=== PATIENT | female | born 1980 ===

== ENCOUNTER 2018-02-18 12:42 | Day surgery (SDC) | payer BC ==
[2018-02-12 09:29] VITALS: BMI 24.2
[2018-02-18 13:35] VITALS: RESP 18
[2018-02-18 14:23] LABS: HEMOGLOBIN 12.9 g/dL (12.0-16.0); MEAN CELL VOLUME 84.9 fl (81.0-99.0); MEAN CORPUSCULAR HEMOGLOBIN 28.6 pg (27.0-31.0); MEAN CORPUSCULAR HGB CONC 33.7 g/dL (33.0-37.0); RBC 4.51 Mil/uL (3.80-5.20); RED CELL DISTRIBUTION WIDTH 14.3 % (11.5-14.5); WHITE BLOOD COUNT 6.9 K/uL (4.8-10.8)
[2018-02-18] MEDS ORDERED: Silver Nitrate Topical - Stick ONE (14:49)
[2018-02-18] MEDS ORDERED: Midazolam 2 MG/2 ML VIAL ONE (15:05)
[2018-02-18] MEDS ORDERED: Propofol 10 mg/ml Inj (20 ML) ONE (15:05)
[2018-02-18] MEDS ORDERED: Dexamethasone 4 mg/1 ml ONE (15:44)
[2018-02-18] MEDS ORDERED: HYDROmorphone 0.5 mg/0.5 ml ISec IVP PRN (16:26)
[2018-02-18] MEDS ORDERED: Lactated Ringer's 1,000 ML IV SCH (16:30)
[2018-02-18 17:25] VITALS: O2SAT 99
[2018-02-18 18:10] VITALS: BP 116/75; PULSE 74; TEMP 97.7
--- NOTE | 2018-02-19 11:04 | CP.SDSHP ---
Same Day Surgery H & P - History Proposed Procedure: Hysteroscopy Pre-Op Diagnosis: Endometrial polyps - Allergies Allergies: Allergies No Known Allergies Allergy (Verified 02/12/18 09:29) - Impression Impression: Ready for discharge after procedure Pt. Evaluated Today:Candidate for Anesthesia & Procedure: Yes Short Stay Discharge - Short Stay Discharge Admitting Diagnosis/Reason for Visit: N84.0 Disposition: HOME/ ROUTINE Referrals: Kimberly Mendoza MD [Primary Care Provider] -
--- NOTE | 2018-02-20 06:54 | OP ---
PROCEDURE DATE: 02/18/2018 PREOPERATIVE DIAGNOSES: The patient is a 37-year-old female with endometriosis and endometrial polyps. POSTOPERATIVE DIAGNOSES: Endometrial polyps and uterine septum. SURGEON: Kimberly Mendoza MD. TUBE DRAWER: None. TYPE OF ANESTHESIA: General with LMA. ANESTHESIOLOGIST: Dr. Angus Garcia. PROCEDURES: 1. Hysteroscopic polypectomy. 2. Uterine septum division. IV FLUID: 900 mL. HYSTEROSCOPIC FLUID: Normal saline, 3800 mL in, 3500 mL out, 500 mL deficit. ESTIMATED BLOOD LOSS: Less than 10 mL. DRAINS USED: None. BLOOD: None. COMPLICATIONS: None. SPECIMEN: Endometrial polyps. FINDINGS: 1. Uterine sounded to 8 cm. 2. Anteverted uterus. 3. Normal tubal ostia. 4. Small midline uterine septum. 5. Polypoid endometrium throughout uterine cavity. DESCRIPTION OF PROCEDURE: After proper consent was obtained and all questions were answered, the patient was transferred to the operating room #[address] [facility] where adequate general anesthesia with LMA was administered. The patient was placed in a modified dorsal lithotomy position using the Arash stirrups with correct position to prevent nerve injury. An exam under anesthesia was performed with findings as noted above. The patient had an anteverted multilobular uterus. The patient has known fibroids. Sterile prep with Betadine and then drape in the usual fashion was performed and attention was directed to the perineum. A weighted speculum was placed into the posterior fornix of the vagina and a right angle retractor into the anterior fornix of the vagina. The cervix was visualized and anterior lip of the cervix was grasped with a single tooth tenaculum. Cervix was serially dilated using the Montrell dilators to accommodate the operative hysteroscope. The hysteroscope was prepared with normal saline and advanced into the uterine cavity under direct visualization. The uterus was surveyed with findings as noted above. Attention was directed to the uterine surface. Multiple small polypoid fragments were noted throughout the uterine surface. The hysteroscopic graspers and scissors were placed through the operating port of the hysteroscope and used to directly under visualization resect the endometrial polyps throughout the uterine cavity. These were sent to pathology. The uterine fundus was closely inspected and noted to be slightly arched into the uterine cavity with a very whitish fibrous appearance. The hysteroscopic scissors were advanced through the operating port and used to lyse the small uterine subseptum at the uterine fundus. The septum resection was carried through the tissue until pink slightly vascular tissue was noted underneath. The uterine cavity was surveyed at the conclusion of the procedure. After the septum division, the uterine captivated normal shape. There were no further abnormalities. No fibroids were noted in the uterine cavity or through the uterine wall. Bilateral tubal ostia appeared normal. All instruments were removed from the uterine cavity and the single tooth tenaculum was removed from the uterine cervix. Silver nitrate and sponge sticks were used to achieve hemostasis at the uterine cervix. All instruments were removed from the vaginal vault. The patient was placed into the supine position and transferred to the recovery room in good condition. She will follow up with Dr. Kimberly Mendoza in 2 weeks' time. Kimberly Mendoza MD
--- NOTE | 2018-02-20 07:05 | OP ---
PROCEDURE DATE: 02/18/2018 PREOPERATIVE DIAGNOSIS: The patient is a 37-year-old female with endometrial polyps. POSTOPERATIVE DIAGNOSES: Endometrial polyps and uterine septum. PROCEDURE: Hysteroscopic polypectomy and uterine septum division. SURGEON: Kimberly Mendoza MD. APPLICATIONS PROGRAMMER: None. TYPE OF ANESTHESIA: General anesthesia with LMA. ANESTHESIA ADMINISTERED BY: Dr. Coppola. IV FLUID: 900 mL URINE OUTPUT: None. HYSTEROSCOPIC FLUID: Normal saline 3000 mL in, 3500 mL out, 500 mL deficit. BLOOD GIVEN: None. SPECIMEN: Endometrial polyp. OPERATIVE FINDINGS: 1. Uterine sounded to 8 cm. 2. Anteverted uterus. 3. Normal tubal ostia bilaterally. 4. Small uterine septum, midline. 5. Diffusely polypoid endometrium. DESCRIPTION OF PROCEDURE: After proper consent was obtained and all questions were answered, the patient was transferred to the operating room #4 at [facility]. Adequate general anesthesia with LMA was administered and the patient was placed in a modified dorsal lithotomy position using the Arash stirrups. Sterile prep and drape was performed in the usual fashion after an exam under anesthesia was performed with findings as noted above. Attention was directed to the perineum. A weighted speculum was placed into posterior fornix of the vagina and a right angle retractor into the anterior fornix. The uterine cervix was visualized and the anterior lip of the cervix was grasped with a single tooth tenaculum. The cervix was sterilely dilated using Montrell dilators to accommodate the operative hysteroscope. The operative hysteroscope was prepared using normal saline and advanced into the uterine cavity under direct visualization. Of note, the cavity was noted to deviate to the patient's right side. The uterine cavity was surveyed with findings as noted above. The tubal ostia were visualized and diffusely polypoid endometrium was noted. The midline fundal area of the uterine fundus was noted to be slightly distorted into the uterine cavity indicating a uterine septum. Furthermore, the tissue was noted to be fibrous appearing. The hysteroscopic graspers were placed into the operating port of the hysteroscope and used to remove the endometrial polyps in a serial fashion under direct visualization. These polyps were sent to pathology. Hysteroscopic scissors that were then inserted into the operating port and used to divide the uterine septum in the midline, taking care to use the tubal ostia as guidelines for the septum division. The division was carried through the fibrous tissue until well vascularized pink tissue was seen underneath. The uterus was surveyed postprocedure and noted to have a smooth endometrial lining in a normal shape. The hysteroscope was removed under direct visualization. The tenaculum was removed from the anterior lip of the cervix and hemostasis was achieved with silver nitrate sticks and pressure from a sponge stick. All instruments were removed from the vaginal vault and the patient was transferred to the recovery room in good condition. She will follow up with Dr. Kimberly Mendoza in 2 weeks' time. Kimberly Mendoza MD
== END 2018-02-18 18:30 | disposition home or self-care (01) ==
LOC: H.OPSURG 12:42
PROVIDERS: ATTEND Obstetrics & Gynecology Reproductive Endocrinology
DX: N84.0 Polyp of corpus uteri (principal); M54.9 Dorsalgia, unspecified; Q51.2 Other doubling of uterus
CPT/HCPCS: 36415; 58558; 58560; 85027; 88307; J1100; J1885; J2001; J2250; J2704; J2765; J3010